=== PATIENT | female | born 1950 | race Caucasian/White ===

== ENCOUNTER 2017-06-23 21:24 | Emergency (ER) | payer MEDICARE, OTHER ==
[2017-06-23] MEDS ORDERED: Sodium Chloride 0.9% 1,000 ML IV SCH (21:45)
[2017-06-23] MEDS ORDERED: Sodium Chloride 0.9% 10 ML Syringe FLUSH PRN (21:45)
[2017-06-23 22:34] VITALS: BP 144/73
--- NOTE | 2017-06-24 16:46 | ER ---
DATE SEEN: 06/23/2017 TIME SEEN: 11 p.m. CHIEF COMPLAINT: Fever. HISTORY OF PRESENT ILLNESS: Ana is a 66-year-old female, who comes in because of fever for 5 days, first seen in the walk-in clinic, and transferred here because they found acute kidney injury in the lab work. She complains of intermittent diarrhea, some sore throat but no chest pain or cough. No cold symptoms just feels generally weak. Has been eating and drinking fine. PAST MEDICAL HISTORY: Hypertension, fluid retention, anxiety and depression. CURRENT MEDICATIONS: 1. Lisinopril. 2. Paxil. 3. Klonopin. 4. She recently quit furosemide on the . PHYSICAL EXAMINATION: GENERAL: She is obese but in no distress. VITAL SIGNS: Blood pressure initially 144/73, temperature 97.4, and oxygenation 97% on room air. EARS, NOSE, AND THROAT: Negative. HEAD: Normal size. NECK: Supple. CARDIOVASCULAR SYSTEM: Normal S1, S2. RESPIRATORY SYSTEM: Diminished breath sounds bilaterally, occasional wheezing. EXTREMITIES: Marked peripheral nonpitting edema. LABORATORY STUDIES: I reviewed lab sets from the walk-in clinic that showed creatinine of 2.9. Sodium was 129 and potassium 3.3. Troponin was negative and BNP was 12. Urine was unremarkable. I did an EKG today that was normal sinus rhythm, and chest x-ray that was unremarkable. IMPRESSION: 1. Acute febrile illness. 2. Acute kidney injury. 3. Hypertension. PLAN: I gave her 1 L of normal saline. I discontinued lisinopril. I advised her to be seen in the clinic on Monday without fail. At the minimum, we will obtain a repeat basic metabolic profile. If her symptoms get worse, we will like to see her back in the ER this weekend. I ordered for 2 sets of blood cultures, which will be set up. TIME SEEN: 11:00 p.m. /[id number] SARA/GENARO
--- NOTE | 2017-06-26 11:12 | CR ---
INDICATION: Short of breath, previous smoker for 30 years. CHEST: PA and lateral views of the chest were obtained 06/23/2017. No comparisons were available. The heart appears mildly enlarged with fairly generalized enlargement and definite LVE. The aorta is calcified in the arch area. Mild to moderate degenerative changes are noted off vertebral bodies in the mid thoracic spine. A definite active infiltrate or effusion was not identified. There does appear to be some lateral pleural thickening bilaterally, likely fibrotic in nature. IMPRESSION: No acute process. MTDD
== END 2017-06-23 23:30 | disposition home or self-care (01) ==
LOC: FB.ED 21:24
DX: R50.9 Fever, unspecified (principal); I10 Essential (primary) hypertension; F32.9 Major depressive disorder, single episode, unspecified
CPT/HCPCS: 36415; 71020; 80053; 81001; 83880; 84484; 85025; 86140; 87040; 93005; 96360; 99283; J7040

== ENCOUNTER 2018-07-01 22:49 | Emergency (ER) | payer MEDICARE, OTHER ==
[2018-07-01] MEDS ORDERED: Sodium Chloride 0.9% 1,000 ML IV ONE (23:06)
[2018-07-01] MEDS ORDERED: Pantoprazole 40 MG Vial IVPUSH ONE (23:07)
--- NOTE | 2018-07-01 23:08 | EDM.PDOC ---
ED HPI GENERAL MEDICAL PROBLEM - General Chief Complaint: Gastrointestinal Problem Stated Complaint: VOMITTING Time Seen by Provider: 07/01/18 22:50 Source of Information: Reports: Patient History Limitations: Reports: No Limitations - History of Present Illness INITIAL COMMENTS - FREE TEXT/NARRATIVE: 67-year-old to who also is an alcoholic. She has a home health provider which is her daughter. Daughter doesn't know where she keeps alcohol. The patient's and patient drink alcohol extensively and hide the etoh form her daughter. She is diabetic takes Januvia. Has been "retching and puking " all day. She drank excessively yesterday. He has extensive lymphedema and has difficulty walking with poor mobility consequently is on disability and she's had home health care 8 weeks trial. She longer has that social program now her daughter is taking care of her. She did well with physical therapy but has not done persisted to consume alcohol Smokes 40 years, one half pack per day (20 pack years). Vomiting now, while I talk to her, no hematemesis. She has generalized abdominal discomfort, patient no diarrhea no blood in her stools, no black tarry stools, no hematochezia or, back pain kidney stones. Previous surgery abdominal hysterectomy and oophorectomy 1 para 1001. Onset Date: 07/01/18 Onset Time: 11:00 Duration: Hour(s): (12) Location: Reports: Abdomen Quality: Reports: Ache Severity: Moderate Improves with: Reports: None Worsens with: Reports: Other (etoh) Associated Symptoms: Reports: Nausea/Vomiting - Related Data Allergies Allergy/AdvReac Type Severity Reaction Status Date / Time No Known Allergies Allergy Verified 07/01/18 22:59 Home Meds: Home Meds ClonazePAM [KlonoPIN] 0.5 mg PO TID PRN 06/23/17 [History] Furosemide 20 mg PO DAILY 06/23/17 [History] Lisinopril 5 mg PO DAILY 06/23/17 [History] PARoxetine [Paxil] 10 mg PO DAILY 06/23/17 [History] Spironolactone [Aldactone] 50 mg PO DAILY 07/01/18 [History] Past Medical History HEENT History: Reports: Impaired Vision Other HEENT History: glasses Cardiovascular History: Reports: Heart Failure, Hypertension Psychiatric History: Reports: Anxiety, Depression Social & Family History - Caffeine Use Caffeine Use: Reports: Coffee, Soda ED ROS GENERAL - Review of Systems Review Of Systems: See Below Constitutional: Reports: No Symptoms HEENT: Reports: No Symptoms Respiratory: Reports: No Symptoms, Shortness of Breath, Other (shortness of breath unless she sleep sitting up in a lazy boy chair) Cardiovascular: Reports: No Symptoms Endocrine: Reports: No Symptoms GI/Abdominal: Reports: Abdominal Pain, Anorexia, Decreased Appetite, Nausea, Vomiting : Reports: Incontinence, Other (Experienced incontinence as well as speaking to her) Musculoskeletal: Reports: No Symptoms Skin: Reports: No Symptoms Neurological: Reports: No Symptoms, Other (she has fallen twice since March ( her daughter has been here wither her mother and father at [facility] with her mother and father -daughter comes from [place] since March)) Psychiatric: Reports: No Symptoms Hematologic/Lymphatic: Reports: No Symptoms Immunologic: Reports: No Symptoms ED EXAM, GI/ABD - Physical Exam Exam: See Below Text/Narrative:: Obese 320 pound woman in moderate distress accompanied by her daughter with repetitive retching and vomiting of clear, nonbloody, succicus entericus Exam Limited By: No Limitations General Appearance: Alert, Moderate Distress Eyes: Bilateral: Normal Appearance Ears: Normal External Exam, Normal Canal, Hearing Grossly Normal, Normal TMs Nose: Normal Inspection Throat/Mouth: Normal Inspection, Normal Lips, Normal Teeth, Normal Gums, Normal Oropharynx, Normal Voice, No Airway Compromise Head: Atraumatic, Normocephalic Neck: Normal Inspection, Supple, Non-Tender, Full Range of Motion Respiratory/Chest: No Respiratory Distress, Lungs Clear, Normal Breath Sounds, No Accessory Muscle Use, Chest Non-Tender Cardiovascular: Normal Peripheral Pulses, Regular Rate, Rhythm, No JVD, No Murmur, No Rub GI/Abdominal Exam: Normal Bowel Sounds, Soft, Non-Tender, No Organomegaly, No Distention, No Abnormal Bruit, No Mass (Female) Exam: Deferred Rectal (Female) Exam: Deferred Back Exam: Normal Inspection Neurological: Alert, Oriented, CN II-XII Intact, Normal Cognition, Normal Gait, Other (Absent reflexes lwer extremities) Psychiatric: Normal Affect, Normal Mood Skin Exam: Warm, Dry, Intact, Other (Bilateral lower extremity extensive lymphedema with bluish discoloration to the knees to the ankles with decreased dorsalis pedis pulses, she has nonpitting lymphedema) Lymphatic: No Adenopathy EKG INTERPRETATION EKG Date: 07/01/18 Time: 23:20 Rhythm: NSR Rate (Beats/Min): 88 [place]: Normal P-Wave: Enlarged (p very slightly notched, old anteroseptal [place] suggested with porr R wave progression across the precordials) QRS: Other (see below) ST-T: Normal QT: Normal Comparison: NA - No Prior EKG Course - Vital Signs Last Recorded V/S: Last Vital Signs Temp 36.4 C 07/02/18 00:12 Pulse 93 07/02/18 01:54 Resp 20 07/02/18 01:54 BP 166/75 H 07/02/18 01:54 Pulse Ox 98 07/02/18 01:54 - Orders/Labs/Meds Orders: Active Orders 24 hr Category Date Time Status CXR [Chest 1V Frontal] [CR] Stat Exams 07/01/18 23:05 Taken DRUG SCREEN, URINE ALERE [URCHEM] Urgent Lab 07/02/18 02:23 Ordered UA W/MICROSCOPIC [URIN] Urgent Lab 07/02/18 02:23 Ordered Dextrose 5%-Lactated Ringers 1,000 ml Med 07/01/18 23:15 Active IV ASDIRECTED Sodium Chloride 0.9% [Normal Saline] 1,000 ml Med 07/02/18 01:45 Active IV ASDIRECTED EKG 12 Lead [EK] Routine Ther 07/01/18 23:05 Ordered Medication Orders Dextrose/Lactated Ringer's (Dextrose 5%-Lactated Ringers) 1,000 mls @ 999 mls/ hr IV ASDIRECTED NISSA Last Admin: 07/01/18 23:40 Dose: 999 mls/hr Sodium Chloride (Normal Saline) 1,000 mls @ 999 mls/hr IV ASDIRECTED NISSA Last Admin: 07/02/18 02:00 Dose: 999 mls/hr Labs: Laboratory Tests 07/01/18 07/01/18 07/01/18 Range/Units 23:20 23:20 23:20 WBC 14.6 H (4.5-12.0) X10-3/uL RBC 4.87 (3.23-5.20) x10(6)uL Hgb 14.0 (11.5-15.5) g/dL Hct 41.9 (30.0-51.3) % MCV 86.0 (80-96) fL MCH 28.8 (27.7-33.6) pg MCHC 33.4 (32.2-35.4) g/dL RDW 15.2 (11.5-15.5) % Plt Count 211 (125-369) X10(3)uL MPV 8.6 (7.4-10.4) fL Add Manual Diff Yes Neutrophils % (Manual) 93 H (46-82) % Lymphocytes % (Manual) 4 L (13-37) % Monocytes % (Manual) 2 L (4-12) % Basophils % (Manual) 1 (0-2) % Sodium 131 L (135-145) mmol/L Potassium 3.6 (3.5-5.3) mmol/L Chloride 91 L (100-110) mmol/L Carbon Dioxide 25 (21-32) mmol/L BUN 7 (7-18) mg/dL Creatinine 0.8 (0.55-1.02) mg/dL Est Cr Clr Drug Dosing 67.27 mL/min Estimated GFR (MDRD) > 60 (>60) BUN/Creatinine Ratio 8.8 L (9-20) Glucose 142 H (80-116) mg/dL Calcium 9.7 (8.6-10.2) mg/dL Total Bilirubin 1.4 H (0.1-1.3) mg/dL AST 86 H (5-25) IU/L ALT 27 (12-36) U/L Alkaline Phosphatase 182 H (56-112) IU/L Troponin I < 0.017 L (<0.017-0.056) ng/mL Total Protein 9.7 H (6.0-8.0) g/dL Albumin 3.7 (3.2-4.6) g/dL Globulin 6.0 g/dL Albumin/Globulin Ratio 0.6 Amylase 29 (25-115) U/L Urine Color (YELLOW) Urine Appearance (CLEAR) Urine pH (5.0-6.5) Ur Specific [place] (1.010-1.025) Urine Protein (NEGATIVE) mg/dL Urine Glucose (UA) (NEGATIVE) mg/dL Urine Ketones (NEGATIVE) mg/dL Urine Occult Blood (NEGATIVE) Urine Nitrite (NEGATIVE) Urine Bilirubin (NEGATIVE) Urine Urobilinogen (NEGATIVE) mg/dL Ur Leukocyte Esterase (NEGATIVE) Urine RBC (0) Urine WBC (0) Ur Squamous Epith Cells (NS,R,O) Urine Bacteria (NS) Urine Mucus (NS) Urine Opiates Screen (NEGATIVE) Ur Oxycodone Screen (NEGATIVE) Ur Propoxyphene Screen (NEGATIVE) Ur Barbituates Screen (NEGATIVE) Ur Tricyclics Screen (NEGATIVE) Ur Phencyclidine Scrn (NEGATIVE) Ur Amphetamine Screen (NEGATIVE) Urine MDMA Screen (NEGATIVE) U Benzodiazepines Scrn (NEGATIVE) U Cocaine Metab Screen (NEGATIVE) U Marijuana (THC) Screen (NEGATIVE) Ethyl Alcohol < 0.03 (<0.03) % 07/02/18 07/02/18 Range/Units 02:23 02:23 WBC (4.5-12.0) X10-3/uL RBC (3.23-5.20) x10(6)uL Hgb (11.5-15.5) g/dL Hct (30.0-51.3) % MCV (80-96) fL MCH (27.7-33.6) pg MCHC (32.2-35.4) g/dL RDW (11.5-15.5) % Plt Count (125-369) X10(3)uL MPV (7.4-10.4) fL Add Manual Diff Neutrophils % (Manual) (46-82) % Lymphocytes % (Manual) (13-37) % Monocytes % (Manual) (4-12) % Basophils % (Manual) (0-2) % Sodium (135-145) mmol/L Potassium (3.5-5.3) mmol/L Chloride (100-110) mmol/L Carbon Dioxide (21-32) mmol/L BUN (7-18) mg/dL Creatinine (0.55-1.02) mg/dL Est Cr Clr Drug Dosing mL/min Estimated GFR (MDRD) (>60) BUN/Creatinine Ratio (9-20) Glucose (80-116) mg/dL Calcium (8.6-10.2) mg/dL Total Bilirubin (0.1-1.3) mg/dL AST (5-25) IU/L ALT (12-36) U/L Alkaline Phosphatase (56-112) IU/L Troponin I (<0.017-0.056) ng/mL Total Protein (6.0-8.0) g/dL Albumin (3.2-4.6) g/dL Globulin g/dL Albumin/Globulin Ratio Amylase (25-115) U/L Urine Color Yellow (YELLOW) Urine Appearance Slightly cloudy (CLEAR) Urine pH 5.0 (5.0-6.5) Ur Specific [place] 1.025 (1.010-1.025) Urine Protein 30 H (NEGATIVE) mg/dL Urine Glucose (UA) 50 H (NEGATIVE) mg/dL Urine Ketones 50 H (NEGATIVE) mg/dL Urine Occult Blood Moderate H (NEGATIVE) Urine Nitrite Negative (NEGATIVE) Urine Bilirubin Small H (NEGATIVE) Urine Urobilinogen 4 H (NEGATIVE) mg/dL Ur Leukocyte Esterase Negative (NEGATIVE) Urine RBC 5-10 (0) Urine WBC 0-5 (0) Ur Squamous Epith Cells Moderate H (NS,R,O) Urine Bacteria Moderate H (NS) Urine Mucus Moderate H (NS) Urine Opiates Screen Negative (NEGATIVE) Ur Oxycodone Screen Negative (NEGATIVE) Ur Propoxyphene Screen Negative (NEGATIVE) Ur Barbituates Screen Negative (NEGATIVE) Ur Tricyclics Screen Negative (NEGATIVE) Ur Phencyclidine Scrn Negative (NEGATIVE) Ur Amphetamine Screen Negative (NEGATIVE) Urine MDMA Screen Negative (NEGATIVE) U Benzodiazepines Scrn Negative (NEGATIVE) U Cocaine Metab Screen Negative (NEGATIVE) U Marijuana (THC) Screen Negative (NEGATIVE) Ethyl Alcohol (<0.03) % Meds: Medications Generic Name Dose Route Start Last Admin Trade Name Freq PRN Reason Stop Dose Admin Dextrose/Lactated Ringer's 1,000 mls @ 999 mls/hr 07/01/18 23:15 07/01/18 23: 40 Dextrose 5%-Lactated Ringers IV 999 mls/hr ASDIRECTED NISSA Administration Sodium Chloride 1,000 mls @ 999 mls/hr 07/02/18 01:45 07/02/18 02:00 Normal Saline IV 999 mls/hr ASDIRECTED NISSA Administration Discontinued Medications Generic Name Dose Route Start Last Admin Trade Name Freq PRN Reason Stop Dose Admin Diazepam 5 mg 07/02/18 03:16 Valium. PO 07/02/18 03:17 ONETIME ONE Sodium Chloride 1,000 mls @ 999 mls/hr 07/01/18 23:06 07/02/18 00:50 Normal Saline IV 07/02/18 00:06 999 mls/hr .BOLUS ONE Administration Pantoprazole Sodium 80 mg 07/01/18 23:07 07/01/18 23:42 Protonix Iv IVPUSH 07/01/18 23:08 80 mg .BOLUS ONE Administration - Re-Assessments/Exams Free Text/Narrative Re-Assessment/Exam: 07/01/18 23:13 Patient received 2000 mL normal saline, 1000 mL D5 lactated Ringer's, Protonix 80 mg IV, Departure - Departure Time of Disposition: 03:30 (pt has been rehydrate with 3 liter of fluid and took time to arrange detox . She has finally baeen accepted at [facility] by [facility]) Disposition: DC/Tfer to Other Clinical Impression: ETOHism, Myocardial infarct, old, Morbid obesity with BMI of 50.0-59.9, adult Diabetes mellitus Qualifiers: Diabetes mellitus type: type 2 Diabetes mellitus rat exterminator insulin use: without snf use Diabetes mellitus complication status: with hyperglycemia Qualified Code(s): E11.65 - Type 2 diabetes mellitus with hyperglycemia Alcohol withdrawal Qualifiers: Complication of substance-induced condition: uncomplicated Qualified Code(s): F10.230 - Alcohol dependence with withdrawal, uncomplicated - Discharge Information *PRESCRIPTION DRUG MONITORING PROGRAM REVIEWED*: Not Applicable *COPY OF PRESCRIPTION DRUG MONITORING REPORT IN PATIENT KLAUDIA: Not Applicable Referrals: Suzan Mei PA [Primary Care Provider] - Forms: ED Department Discharge Additional Instructions: pT IS TRANFERRED TO [facility] FOR TREATMENT, AND HAS RECEIVED 5 MG OF VALIUM PO BEFORE TRANSFER. IF HER STATUS CHANGES AND SHE HAS MORE SYMPATHOMIMETIC SYMPTOMS 5 MG VALIUM CAN BE GIVEN EVERY 1-2 HOURS NEEDED BY [employer] ON TRANSPORT - My Orders Last 24 Hours: My Active Orders 07/01/18 23:05 CXR [Chest 1V Frontal] [CR] Stat EKG 12 Lead [EK] Routine 07/01/18 23:15 Dextrose 5%-Lactated Ringers 1,000 ml IV ASDIRECTED 07/02/18 01:45 Sodium Chloride 0.9% [Normal Saline] 1,000 ml IV ASDIRECTED 07/02/18 02:23 DRUG SCREEN, URINE ALERE [URCHEM] Urgent UA W/MICROSCOPIC [URIN] Urgent - Assessment/Plan Last 24 Hours: My Active Orders 07/01/18 23:05 CXR [Chest 1V Frontal] [CR] Stat EKG 12 Lead [EK] Routine 07/01/18 23:15 Dextrose 5%-Lactated Ringers 1,000 ml IV ASDIRECTED 07/02/18 01:45 Sodium Chloride 0.9% [Normal Saline] 1,000 ml IV ASDIRECTED 07/02/18 02:23 DRUG SCREEN, URINE ALERE [URCHEM] Urgent UA W/MICROSCOPIC [URIN] Urgent
[2018-07-01] MEDS ORDERED: Dextrose 5%-Lactated Ringers 1,000 ML IV SCH (23:15)
[2018-07-02] MEDS ORDERED: Sodium Chloride 0.9% 1,000 ML IV SCH (01:45)
[2018-07-02] MEDS ORDERED: Diazepam 5 MG Tab PO ONE (03:16)
[2018-07-02 04:08] VITALS: BP 165/71
--- NOTE | 2018-07-04 10:45 | CR ---
INDICATION: Vomiting. CHEST: An AP upright portable view of the chest, 07/01/2018, was compared with 06/23/2017 and revealed the heart to appear somewhat prominent, but it is made more prominent by the AP positioning and relatively poor inspiration. It may be normal in size. A true PA view of the chest with full inspiration may be helpful for further evaluation. The aorta is calcified in the arch area and minimally tortuous. A definite active infiltrate or effusion was not identified. Evidence of exogenous obesity is noted. A linear density at the right lung base likely represents either fibrosis or linear atelectasis and may be partly on the basis of relatively poor inspiration. IMPRESSION: 1. No acute process. 2. Probable ASHD - PA and lateral views of the chest with full inspiration recommended for further evaluation of the heart size. 3. Exogenous obesity. MTDD
== END 2018-07-02 04:00 | disposition other institution (70) ==
LOC: FB.ED 22:49
DX: F10.230 Alcohol dependence with withdrawal, uncomplicated (principal); E11.65 Type 2 diabetes mellitus with hyperglycemia; I25.2 Old myocardial infarction; E66.01 Morbid (severe) obesity due to excess calories; Z68.43 Body mass index [BMI] 50.0-59.9, adult; I11.0 Hypertensive heart disease with heart failure; I50.9 Heart failure, unspecified; Z79.899 Other long term (current) drug therapy; F32.9 Major depressive disorder, single episode, unspecified
CPT/HCPCS: 36415; 71045; 80053; 80305; 81001; 82150; 84484; 85025; 93005; 96361; 96374; 99285; A9270; C9113; G0480; J7030; J7042

== ENCOUNTER 2019-03-07 11:28 | Inpatient (IN) | payer MEDICARE, OTHER ==
[2019-03-07] MEDS ORDERED: Diphtheria,Pertussis(Acell),Tetanus Vaccine 0.5 ML SDV IM ONE (11:50)
[2019-03-07] MEDS ORDERED: Triamcinolone Acetonide 0.1% Crm 15 GM Tube TOP PRN (13:19)
--- NOTE | 2019-03-07 20:38 | PCM.HP ---
H&P History of Present Illness - General Date of Service: 03/07/19 Admit Problem/Dx: Admission Diagnosis/Problem Admission Diagnosis/Problem Weakness Source of Information: Old Records History Limitations: Reports: No Limitations - History of Present Illness Initial Comments - Free Text/Narative: 68 yo admitted for Swing Bed due to debility. She was at [facility] for a month due to syncope and collapse and closed fracture of the right humerus. This was treated non surgically. She has a h/o ETOISM,DM and HTN. She complains of anxiety today - Related Data Allergies/Adverse Reactions: Allergies Allergy/AdvReac Type Severity Reaction Status Date / Time No Known Allergies Allergy Verified 03/07/19 11:46 Home Medications: Home Meds ClonazePAM [KlonoPIN] 0.5 mg PO BID PRN 06/23/17 [History] Acetaminophen [Tylenol] 650 mg PO Q4H PRN 03/07/19 [History] Aspirin [Halfprin] 81 mg PO DAILY 03/07/19 [History] Folic Acid 1 mg PO DAILY 03/07/19 [History] Olopatadine [Pataday 0.2% Ophth Soln] 1 drop EYEBOTH DAILY 03/07/19 [History] Omeprazole 20 mg PO BEDTIME 03/07/19 [History] PARoxetine [Paxil] 40 mg PO DAILY 03/07/19 [History] SitaGLIPtin [Januvia] 50 mg PO DAILY 03/07/19 [History] Triamcinolone Acetonide [Triamcinolone Acetonide 0.1% Crm] 1 applic TOP BID PRN 03/07/19 [History] Past Medical History HEENT History: Reports: Impaired Vision Other HEENT History: glasses Cardiovascular History: Reports: Heart Failure, 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 Endocrine/Metabolic History: Reports: Diabetes, Type II Dermatologic History: Reports: Cellulitis Other Dermatologic History: cellulitis in 2015 - Infectious Disease History Infectious Disease History: Reports: Chicken Pox, Measles - Past Surgical History HEENT Surgical History: Reports: Cataract Surgery Female Surgical History: Reports: Hysterectomy Social & Family History - Family History Family Medical History: Noncontributory - Tobacco Use Smoking Status *Q: Current Every Day Smoker Years of Tobacco use: 30 Packs/Tins Daily: 0.5 Second Hand Smoke Exposure: Yes - Caffeine Use Caffeine Use: Reports: Coffee, Soda, Tea - Alcohol Use Days Per Week of Alcohol Use: 5 Number of Drinks Per Day: 6 Total Drinks Per Week: 30 Date of Last Drink: 03/03/19 Time of Last Drink: 10:00 - Recreational Drug Use Recreational Drug Use: No H&P Review of Systems - Review of Systems: Review Of Systems: ROS reveals no pertinent complaints other than HPI. Exam - Exam Exam: See Below - Vital Signs Vital Signs: Last Vital Signs Temp 98.2 F 03/07/19 11:45 Pulse 85 03/07/19 11:45 Resp 18 03/07/19 11:45 BP 132/78 03/07/19 11:45 Pulse Ox 96 03/07/19 12:00 Weight: 124.738 kg - Exam General: Alert, Oriented, 4 HEENT: PERRLA, Hearing Intact, Mucosa Moist & [place], Nares Patent, Normal Nasal Septum, Posterior Pharynx Clear, Conjunctiva Clear, EOMI, EACs Clear, TMs Clear Neck: Supple, Trachea Midline, 2 Lungs: Clear to Auscultation, Normal Respiratory Effort Cardiovascular: Regular Rate, Regular Rhythm GI/Abdominal Exam: Normal Bowel Sounds, Soft, Non-Tender, No Organomegaly, No Distention, No Abnormal Bruit, No Mass, Pelvis Stable (Female) Exam: Deferred Rectal (Female) Exam: Deferred Back Exam: Normal Inspection, Full Range of Motion, NT Extremities: Normal Range of Motion, Non-Tender, No Pedal Edema, Normal Capillary Refill, Other (sling right arm) Skin: Warm, Dry, Intact Neurological: Cranial Nerves Intact, Reflexes Equal Bilateral Neuro Extensive - Mental Status: Alert, Oriented x3, Normal Mood/Affect, Normal Cognition Neuro Extensive - Motor, Sensory, Reflexes: CN II-XII Intact, Normal Gait, Normal Reflexes Psychiatric: Alert, Normal Affect, Normal Mood - Patient Data Lab Results Last 24 hrs: Laboratory Results - last 24 hr 03/07/19 Range/Units 18:02 POC Glucose 100 (80-116) mg/dL - Problem List (1) Humerus fracture SNOMED Code(s): 94564860 ICD Code: S42.309A - UNSP FRACTURE OF SHAFT OF HUMERUS, UNSP ARM, INIT Status: Acute Current Visit: Yes Qualifiers: Encounter type: subsequent encounter Fracture type: closed Laterality: right Fracture healing: with routine healing (2) Syncope and collapse SNOMED Code(s): 339616413 ICD Code: R55 - SYNCOPE AND COLLAPSE Status: Chronic Current Visit: Yes (3) Diabetes mellitus SNOMED Code(s): 72281227 ICD Code: E11.9 - TYPE 2 DIABETES MELLITUS WITHOUT COMPLICATIONS Status: Chronic Current Visit: No Qualifiers: Diabetes mellitus type: type 2 Proliferative retinopathy type: stable (4) ETOHism SNOMED Code(s): 8846295 ICD Code: F10.20 - ALCOHOL DEPENDENCE, UNCOMPLICATED Status: Acute Current Visit: No (5) Morbid obesity with BMI of 50.0-59.9, adult SNOMED Code(s): 846906679, 55573431560646 ICD Code: E66.01 - MORBID (SEVERE) OBESITY DUE TO EXCESS CALORIES; Z68.43 - BODY MASS INDEX (BMI) 50-59.9, ADULT Status: Acute Current Visit: No (6) Debility SNOMED Code(s): 12389553 ICD Code: R53.81 - OTHER MALAISE Status: Acute Current Visit: Yes Problem List Initiated/Reviewed/Updated: Yes Orders Last 24hrs: Active Orders 24 hr Category Date Time Status Patient Status [ADT] Routine ADT 03/07/19 13:17 Active Blood Glucose Check, Bedside [RC] 07,11,17 Care 03/07/19 17:00 Active Communication Order [RC] ASDIRECTED Care 03/07/19 14:11 Active Dietary Supplements [RC] TIDMEALS Care 03/07/19 13:17 Active Height and Weight [RC] .THUR@0600 Care 03/07/19 13:17 Active Oxygen Therapy [RC] PRN Care 03/07/19 13:17 Active Up With Assistance [RC] ASDIRECTED Care 03/07/19 13:17 Active VTE/DVT Education [RC] Per Unit Routine Care 03/07/19 13:17 Active Vaccines to be Administered [RC] PER UNIT ROUTINE Care 03/07/19 11:50 Active Vital Signs [RC] 08 Care 03/07/19 13:17 Active OT Evaluation and Treatment [CONS] Routine Cons 03/07/19 13:17 Active PT Evaluation and Treatment [CONS] Routine Cons 03/07/19 13:17 Active Consistent Carbohydrate Diet [DIET] Diet 03/07/19 Lunch Active Acetaminophen [Tylenol] Med 03/07/19 13:19 Active 650 mg PO Q4H PRN Aspirin [Halfprin] Med 03/08/19 09:00 Active 81 mg PO DAILY ClonazePAM [KlonoPIN] Med 03/07/19 13:19 Active 0.5 mg PO BID PRN Folic Acid Med 03/08/19 09:00 Active 1 mg PO DAILY Ketotifen [Ketotifen 0.025% Ophth Soln] Med 03/07/19 21:00 Active 0 ml EYEBOTH BID PARoxetine [Paxil] Med 03/08/19 09:00 Active 40 mg PO DAILY Pantoprazole [ProTONIX] Med 03/07/19 21:00 Active 40 mg PO BEDTIME SitaGLIPtin [Januvia] Med 03/08/19 09:00 Active 50 mg PO DAILY Triamcinolone Acetonide [Triamcinolone Acetonide 0.1% Med 03/07/19 13:19 Active Crm] 0 gm TOP BID PRN Resuscitation Status Routine Resus Stat 03/07/19 13:17 Ordered Medication Orders Acetaminophen (Tylenol) 650 mg PO Q4H PRN PRN Reason: MILD PAIN Aspirin (Halfprin) 81 mg PO DAILY NISSA Clonazepam (Klonopin) 0.5 mg PO BID PRN PRN Reason: Anxiety Folic Acid (Folic Acid) 1 mg PO DAILY NISSA Ketotifen Fumarate (Ketotifen 0.025% Ophth Soln) 0 ml EYEBOTH BID NISSA Pantoprazole Sodium (Protonix) 40 mg PO BEDTIME NISSA Paroxetine HCl (Paxil) 40 mg PO DAILY NISSA Sitagliptin Phosphate (Januvia) 50 mg PO DAILY NISSA Triamcinolone Acetonide (Triamcinolone Acetonide 0.1% Crm) 0 gm TOP BID PRN PRN Reason: ITCHY RASH Assessment/Plan Comment:: Admit to Swing Bed. PT and OT. Resume meds.
[2019-03-07] MEDS: ClonazePAM 0.5 MG Tab PO PRN (21:04)
[2019-03-07] MEDS: Ketotifen 0.025% Ophth Soln 5 ML Bottle EYEBOTH SCH (21:05)
[2019-03-07] MEDS: Pantoprazole 40 MG Tab.CR PO SCH (21:05)
[2019-03-08] MEDS: Aspirin 81 MG Tab.EC PO SCH (08:53)
[2019-03-08] MEDS: Folic Acid 1 MG Tab PO SCH (08:53)
[2019-03-08] MEDS: PARoxetine 20 MG Tab PO SCH (08:54)
[2019-03-08] MEDS: Ketotifen 0.025% Ophth Soln 5 ML Bottle EYEBOTH SCH ×2 (08:54→19:59)
[2019-03-08] MEDS: Pantoprazole 40 MG Tab.CR PO SCH (19:59)
[2019-03-08] MEDS: ClonazePAM 0.5 MG Tab PO PRN (20:05)
[2019-03-09] MEDS: Folic Acid 1 MG Tab PO SCH (08:46)
[2019-03-09] MEDS: Aspirin 81 MG Tab.EC PO SCH (08:46)
[2019-03-09] MEDS: Ketotifen 0.025% Ophth Soln 5 ML Bottle EYEBOTH SCH ×2 (08:46→21:30)
[2019-03-09] MEDS: PARoxetine 20 MG Tab PO SCH (08:47)
[2019-03-09] MEDS: ClonazePAM 0.5 MG Tab PO PRN ×2 (08:51→21:32)
[2019-03-09] MEDS: Acetaminophen 325 MG Tab PO PRN ×3 (08:51→21:32)
[2019-03-09] MEDS: Pantoprazole 40 MG Tab.CR PO SCH (21:31)
[2019-03-10] MEDS: Aspirin 81 MG Tab.EC PO SCH (10:09)
[2019-03-10] MEDS: Folic Acid 1 MG Tab PO SCH (10:09)
[2019-03-10] MEDS: Ketotifen 0.025% Ophth Soln 5 ML Bottle EYEBOTH SCH ×2 (10:10→20:32)
[2019-03-10] MEDS: PARoxetine 20 MG Tab PO SCH (10:10)
--- NOTE | 2019-03-10 11:02 | PCM.PN ---
- General Info Date of Service: 03/10/19 Admission Dx/Problem (Free Text): Patient states she's doing well. She saw some right shoulder pain is improving. She denies chest pain or shortness of breath - Patient Data Vitals - Most Recent: Last Vital Signs Temp 99.3 F 03/10/19 08:00 Pulse 115 H 03/10/19 08:00 Resp 20 03/10/19 08:00 BP 116/74 03/10/19 08:00 Pulse Ox 97 03/10/19 08:00 Weight - Most Recent: 275 lb Lab Results Last 24 Hours: Laboratory Results - last 24 hr 03/09/19 03/10/19 Range/Units 17:31 06:27 POC Glucose 112 105 (80-116) mg/dL Med Orders - Current: Current Medications Acetaminophen (Tylenol) 650 mg PO Q4H PRN PRN Reason: MILD PAIN Last Admin: 03/09/19 21:32 Dose: 650 mg Aspirin (Halfprin) 81 mg PO DAILY REPLACED BY [facility] Last Admin: 03/10/19 10:09 Dose: 81 mg Clonazepam (Klonopin) 0.5 mg PO BID PRN PRN Reason: Anxiety Last Admin: 03/09/19 21:32 Dose: 0.5 mg Folic Acid (Folic Acid) 1 mg PO DAILY REPLACED BY [facility] Last Admin: 03/10/19 10:09 Dose: 1 mg Ketotifen Fumarate (Ketotifen 0.025% Ophth Soln) 0 ml EYEBOTH BID REPLACED BY [facility] Last Admin: 03/10/19 10:10 Dose: 1 drop Pantoprazole Sodium (Protonix) 40 mg PO BEDTIME REPLACED BY [facility] Last Admin: 03/09/19 21:31 Dose: 40 mg Paroxetine HCl (Paxil) 40 mg PO DAILY REPLACED BY [facility] Last Admin: 03/10/19 10:10 Dose: 40 mg Sitagliptin Phosphate (Januvia) 50 mg PO DAILY REPLACED BY [facility] Last Admin: 03/10/19 10:09 Dose: 50 mg Triamcinolone Acetonide (Triamcinolone Acetonide 0.1% Crm) 0 gm TOP BID PRN PRN Reason: ITCHY RASH Discontinued Medications Diphtheria/Tetanus/Acell Pertussis (Adacel) 0.5 ml IM .ONCE ONE Stop: 03/07/19 11:51 - Exam General: Alert, Oriented, Cooperative Extremities: Other (Right arm in a sling. Hand normal with normal range of motion and pulses intact. CMS intact) - Problem List & Annotations (1) Debility SNOMED Code(s): 58722793 Code(s): R53.81 - OTHER MALAISE Status: Acute Current Visit: Yes (2) Humerus fracture SNOMED Code(s): 47849645 Code(s): S42.309A - UNSP FRACTURE OF SHAFT OF HUMERUS, UNSP ARM, INIT Status: Acute Current Visit: Yes Qualifiers: Encounter type: subsequent encounter Fracture type: closed Laterality: right Fracture healing: with routine healing - Problem List Review Problem List Initiated/Reviewed/Updated: Yes - Plan Plan:: Continue current care at PT/OT and pain control.
[2019-03-10] MEDS: Pantoprazole 40 MG Tab.CR PO SCH (20:33)
[2019-03-10] MEDS: ClonazePAM 0.5 MG Tab PO PRN (20:34)
[2019-03-10] MEDS: Acetaminophen 325 MG Tab PO PRN (20:34)
[2019-03-11] MEDS: PARoxetine 20 MG Tab PO SCH (09:37)
[2019-03-11] MEDS: Folic Acid 1 MG Tab PO SCH (09:37)
[2019-03-11] MEDS: Aspirin 81 MG Tab.EC PO SCH (09:37)
[2019-03-11] MEDS: Ketotifen 0.025% Ophth Soln 5 ML Bottle EYEBOTH SCH ×2 (09:38→20:46)
[2019-03-11] MEDS: Acetaminophen 325 MG Tab PO PRN ×2 (17:30→21:17)
[2019-03-11] MEDS: Pantoprazole 40 MG Tab.CR PO SCH (20:46)
[2019-03-11] MEDS: ClonazePAM 0.5 MG Tab PO PRN (21:17)
[2019-03-12] MEDS: Acetaminophen 325 MG Tab PO PRN (06:30)
[2019-03-12] MEDS: traMADol 50 MG Tab PO PRN ×4 (08:48→22:04)
[2019-03-12] MEDS: Aspirin 81 MG Tab.EC PO SCH (08:49)
[2019-03-12] MEDS: Folic Acid 1 MG Tab PO SCH (08:49)
[2019-03-12] MEDS: Ketotifen 0.025% Ophth Soln 5 ML Bottle EYEBOTH SCH ×2 (08:50→20:36)
[2019-03-12] MEDS: PARoxetine 20 MG Tab PO SCH (08:50)
[2019-03-12] MEDS: Celecoxib 200 MG Cap PO SCH ×2 (08:54→20:35)
[2019-03-12] MEDS: Pantoprazole 40 MG Tab.CR PO SCH (20:35)
[2019-03-12] MEDS: ClonazePAM 0.5 MG Tab PO PRN (22:04)
[2019-03-13] MEDS: traMADol 50 MG Tab PO PRN ×5 (02:48→20:51)
[2019-03-13] MEDS: PARoxetine 20 MG Tab PO SCH ×2 (07:50→11:33)
[2019-03-13] MEDS: Ketotifen 0.025% Ophth Soln 5 ML Bottle EYEBOTH SCH ×3 (07:51→20:51)
[2019-03-13] MEDS: Folic Acid 1 MG Tab PO SCH ×2 (07:51→11:32)
[2019-03-13] MEDS: Aspirin 81 MG Tab.EC PO SCH ×2 (07:51→11:32)
[2019-03-13] MEDS: Celecoxib 200 MG Cap PO SCH ×3 (07:51→20:51)
[2019-03-13] MEDS: ClonazePAM 0.5 MG Tab PO PRN (20:51)
[2019-03-13] MEDS: Pantoprazole 40 MG Tab.CR PO SCH (20:51)
[2019-03-14] MEDS: traMADol 50 MG Tab PO PRN ×5 (01:51→20:18)
[2019-03-14] MEDS: Celecoxib 200 MG Cap PO SCH ×2 (07:59→20:17)
[2019-03-14] MEDS: Folic Acid 1 MG Tab PO SCH (07:59)
[2019-03-14] MEDS: PARoxetine 20 MG Tab PO SCH (08:00)
[2019-03-14] MEDS: Ketotifen 0.025% Ophth Soln 5 ML Bottle EYEBOTH SCH ×2 (08:00→20:17)
[2019-03-14] MEDS: Aspirin 81 MG Tab.EC PO SCH (08:00)
[2019-03-14] MEDS: Pantoprazole 40 MG Tab.CR PO SCH (20:17)
[2019-03-15] MEDS: traMADol 50 MG Tab PO PRN ×2 (00:23→04:57)
[2019-03-15] MEDS: Acetaminophen 325 MG Tab PO PRN ×2 (00:24→10:58)
[2019-03-15] MEDS: ClonazePAM 0.5 MG Tab PO PRN (00:24)
[2019-03-15] MEDS: Celecoxib 200 MG Cap PO SCH ×2 (08:42→20:40)
[2019-03-15] MEDS: Folic Acid 1 MG Tab PO SCH (08:42)
[2019-03-15] MEDS: Aspirin 81 MG Tab.EC PO SCH (08:43)
[2019-03-15] MEDS: PARoxetine 20 MG Tab PO SCH (08:43)
[2019-03-15] MEDS: Ketotifen 0.025% Ophth Soln 5 ML Bottle EYEBOTH SCH ×2 (08:43→20:41)
[2019-03-15] MEDS: Pantoprazole 40 MG Tab.CR PO SCH (20:41)
[2019-03-16 06:07] VITALS: BP 146/90
[2019-03-16] MEDS: Folic Acid 1 MG Tab PO SCH (09:25)
[2019-03-16] MEDS: Celecoxib 200 MG Cap PO SCH (09:25)
[2019-03-16] MEDS: Ketotifen 0.025% Ophth Soln 5 ML Bottle EYEBOTH SCH (09:26)
[2019-03-16] MEDS: PARoxetine 20 MG Tab PO SCH (09:26)
[2019-03-16] MEDS: Aspirin 81 MG Tab.EC PO SCH (09:26)
[2019-03-16] MEDS: Acetaminophen 325 MG Tab PO PRN (09:30)
--- NOTE | 2019-03-16 11:40 | DISCH ---
DISCHARGE DATE: 03/16/2019 PRIMARY FINAL DIAGNOSIS: Acute humerus fracture, right shoulder. OTHER DIAGNOSES: 1. Gastroesophageal reflux disease. 2. Depression. 3. Type 2 diabetes. 4. Dermatitis. 5. Anxiety. OPERATIONS: None. COMPLICATIONS: None. SUMMARY: Ana is a 68-year-old woman with the above medical problems, who fell and fractured her proximal right humerus. She was admitted from the emergency room. Phone orthopedic consultation suggested conservative nonoperative treatment. She was placed in a shoulder immobilizer and admitted for pain control and function. Her rehab course has been satisfactorily. She is doing hand exercises, but it remains in a shoulder immobilizer. Pain control was satisfactory and laboratory showed good control of her diabetes. By 03/16/2019, she was anxious for discharge. She is sent home in good condition to continue with shoulder immobilizer until next seen by Orthopedics. MEDICATIONS ON DISCHARGE: 1. Celebrex 200 mg b.i.d. p.r.n. pain. 2. Triamcinolone acetonide 0.1% cream b.i.d. p.r.n. rash. 3. Sitagliptin 50 mg daily. 4. Paroxetine 40 mg daily. 5. Omeprazole 20 mg at bedtime. 6. Ketotifen eye drops b.i.d. 7. Pataday eye drops b.i.d. 8. Folic acid 1 mg daily. 9. Clonazepam 0.5 mg b.i.d. 10.Aspirin 81 mg daily. 11.Tylenol p.r.n. She is to have follow up with Orthopedics as discussed and follow up with her regular doctor on a p.r.n. basis. /[id number] SATYA/GENARO
== END 2019-03-16 11:05 | disposition home or self-care (01) | DRG 948 ==
LOC: UNDOADMIN 11:28 → FB.MS 11:28
PROVIDERS: ADMIT Family Medicine; ATTEND Family Medicine
DX: R53.81 Other malaise (principal); Z68.43 Body mass index [BMI] 50.0-59.9, adult; S42.309D Unspecified fracture of shaft of humerus, unspecified arm, subsequent encounter for fracture with routine healing; E11.3599 Type 2 diabetes mellitus with proliferative diabetic retinopathy without macular edema, unspecified eye; F10.20 Alcohol dependence, uncomplicated; F17.210 Nicotine dependence, cigarettes, uncomplicated; I11.0 Hypertensive heart disease with heart failure; I50.9 Heart failure, unspecified; E66.01 Morbid (severe) obesity due to excess calories; R55 Syncope and collapse; K21.9 Gastro-esophageal reflux disease without esophagitis; F32.9 Major depressive disorder, single episode, unspecified; F41.9 Anxiety disorder, unspecified; L30.9 Dermatitis, unspecified; Z79.82 Long term (current) use of aspirin; H54.7 Unspecified visual loss
CPT/HCPCS: 82962; 97110-GO; 97110-GP; 97116-GP; 97161-GP; 97165-GO; 97530-GO; 97530-GP; 97535-GO; 97760-GO; A9270-GY

== ENCOUNTER 2020-01-06 15:42 | Inpatient (IN) | payer MEDICARE, OTHER ==
[2020-01-06] MEDS ORDERED: Lactulose Soln 10 GM/15 ML 30 ML UD Cup PO ONE (16:31)
[2020-01-06] MEDS ORDERED: Iopamidol 755 Mg/ML 100 ML Bottle IV ONE (17:39)
[2020-01-06] MEDS ORDERED: Spironolactone 50 MG Tab PO ONE (18:33)
[2020-01-06] MEDS ORDERED: Sodium Chloride 0.9% 1,000 ML IV SCH ×2 (18:45→20:45)
--- NOTE | 2020-01-06 19:40 | EDM.PDOC ---
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 Pt and were not aware pt was jaundice no generalized pruritus , complaining of weakness , tiredness no fever or chills noted no diarrhea pt did seem more sluggish in her speech pt complaining she has been having increased leg swelling has history of diabetes , not on medication uses a lot of rubbing alcohol on her skin Onset: Today Onset Date: 01/06/20 Location: Reports: Face Quality: Reports: Ache Severity: Moderate Associated Symptoms: Reports: Fever/Chills, Malaise, Nausea/Vomiting, Weakness - Related Data Allergies Allergy/AdvReac Type Severity Reaction Status Date / Time No Known Allergies Allergy Verified 03/07/19 11:46 Home Meds: Home Meds ClonazePAM [KlonoPIN] 0.5 mg PO BID PRN 06/23/17 [History] Acetaminophen [Tylenol] 650 mg PO Q4H PRN 03/07/19 [History] Aspirin [Halfprin] 81 mg PO DAILY 03/07/19 [History] Folic Acid 1 mg PO DAILY 03/07/19 [History] Olopatadine [Pataday 0.2% Ophth Soln] 1 drop EYEBOTH DAILY 03/07/19 [History] Omeprazole 20 mg PO BEDTIME 03/07/19 [History] PARoxetine [Paxil] 40 mg PO DAILY 03/07/19 [History] Triamcinolone Acetonide [Triamcinolone Acetonide 0.1% Crm] 1 applic TOP BID PRN 03/07/19 [History] Past Medical History HEENT History: Reports: Impaired Vision Other HEENT History: glasses Cardiovascular History: Reports: Heart Failure, Hypertension Respiratory History: Reports: None Gastrointestinal History: Reports: None Genitourinary History: Reports: None CUSTOMER RESPONSE REPRESENTATIVE History: Reports: Other CUSTOMER RESPONSE REPRESENTATIVE History: Musculoskeletal History: Reports: Other (See Below) Other Musculoskeletal History: has lymphedema Psychiatric History: Reports: Anxiety, Depression Other Psychiatric History: takes Paroxetine and clonazepam. Endocrine/Metabolic History: Reports: Diabetes, Type II Hematologic History: Reports: Anticoagulation Therapy, Folic Acid Immunologic History: Reports: None Oncologic (Cancer) History: Reports: None Dermatologic History: Reports: Cellulitis Other Dermatologic History: cellulitis in 2015 - Infectious Disease History Infectious Disease History: Reports: Chicken Pox, Measles - Past Surgical History Head Surgeries/Procedures: Reports: None HEENT Surgical History: Reports: Cataract Surgery Cardiovascular Surgical History: Reports: None GI Surgical History: Reports: None Female Surgical History: Reports: Hysterectomy Endocrine Surgical History: Reports: None Neurological Surgical History: Reports: None Oncologic Surgical History: Reports: None Social & Family History - Family History Family Medical History: Noncontributory - Tobacco Use Smoking Status *Q: Current Every Day Smoker Years of Tobacco use: 30 Packs/Tins Daily: 0.2 Used Tobacco, but Quit: No - Caffeine Use Caffeine Use: Reports: None - Alcohol Use Days Per Week of Alcohol Use: 3 Number of Drinks Per Day: 3 Total Drinks Per Week: 9 - Recreational Drug Use Recreational Drug Use: No ED ROS GENERAL - Review of Systems Review Of Systems: See Below Constitutional: Reports: Malaise, Weakness, Fatigue, Decreased Appetite, Weight Gain HEENT: Reports: No Symptoms Respiratory: Reports: No Symptoms Cardiovascular: Reports: No Symptoms Endocrine: Reports: No Symptoms GI/Abdominal: Reports: Nausea. Denies: Diarrhea, Decreased Appetite Musculoskeletal: Reports: No Symptoms Skin: Reports: Jaundice. Denies: Rash Neurological: Reports: Dizziness, Trouble Speaking Psychiatric: Reports: No Symptoms Hematologic/Lymphatic: Reports: No Symptoms ED EXAM, GENERAL - Physical Exam Exam: See Below Exam Limited By: No Limitations General Appearance: Alert, Lethargic, Obese Eye Exam: Bilateral Eye: EOMI, Other (Jumdice) Ears: Hearing Grossly Normal Nose: Normal Inspection Throat/Mouth: Normal Oropharynx Head: Atraumatic, Normocephalic Neck: Supple, Non-Tender, Full Range of Motion Respiratory/Chest: Lungs Clear, Normal Breath Sounds Cardiovascular: Normal Peripheral Pulses, Regular Rate, Rhythm GI/Abdominal: Soft, Non-Tender, Distended. No: Guarding, Rigid, Tender Extremities: Normal Inspection, Normal Range of Motion Neurological: Alert, Oriented, CN II-XII Intact Psychiatric: Normal Affect Skin Exam: Warm Course - Vital Signs Last Recorded V/S: Last Vital Signs Temp 36.3 C 01/07/20 08:00 Pulse 100 01/07/20 08:00 Resp 20 01/07/20 08:00 BP 111/55 L 01/07/20 08:00 Pulse Ox 97 01/07/20 08:00 - Orders/Labs/Meds Labs: Laboratory Tests 01/06/20 01/06/20 01/06/20 Range/Units 17:05 17:05 17:05 WBC 11.4 (4.5-12.0) X10-3/uL RBC 3.21 L (3.23-5.20) x10(6)uL Hgb 10.8 L (11.5-15.5) g/dL Hct 30.9 (30.0-51.3) % MCV 96.2 H (80-96) fL MCH 33.7 H (27.7-33.6) pg MCHC 35.0 (32.2-35.4) g/dL RDW 18.2 H (11.5-15.5) % Plt Count 133 (125-369) X10(3)uL MPV 8.8 (7.4-10.4) fL Add Manual Diff Yes Neutrophils % (Manual) 85 H (46-82) % Band Neutrophils % 2 (0-6) % Lymphocytes % (Manual) 10 L (13-37) % Monocytes % (Manual) 3 L (4-12) % Sodium 129 L (135-145) mmol/L Potassium 3.6 D (3.5-5.3) mmol/L Chloride 92 L (100-110) mmol/L Carbon Dioxide 28 (21-32) mmol/L BUN 13 (7-18) mg/dL Creatinine 1.1 H (0.55-1.02) mg/dL Est Cr Clr Drug Dosing 51.15 mL/min Estimated GFR (MDRD) 49 L (>60) BUN/Creatinine Ratio 11.8 (9-20) Glucose 137 H (80-116) mg/dL Calcium 9.0 (8.6-10.2) mg/dL Total Bilirubin 21.0 H* (0.1-1.3) mg/dL AST 194 H* D (5-25) IU/L ALT 52 H D (12-36) U/L Alkaline Phosphatase 398 H (56-112) IU/L NT-Pro-B Natriuret Pep (<=125) pg/mL Total Protein 8.1 H (6.0-8.0) g/dL Albumin 2.7 L (3.2-4.6) g/dL Globulin 5.4 g/dL Albumin/Globulin Ratio 0.5 Amylase 26 (25-115) U/L Lipase (73-393) U/L 01/06/20 01/06/20 Range/Units 17:05 17:05 WBC (4.5-12.0) X10-3/uL RBC (3.23-5.20) x10(6)uL Hgb (11.5-15.5) g/dL Hct (30.0-51.3) % MCV (80-96) fL MCH (27.7-33.6) pg MCHC (32.2-35.4) g/dL RDW (11.5-15.5) % Plt Count (125-369) X10(3)uL MPV (7.4-10.4) fL Add Manual Diff Neutrophils % (Manual) (46-82) % Band Neutrophils % (0-6) % Lymphocytes % (Manual) (13-37) % Monocytes % (Manual) (4-12) % Sodium (135-145) mmol/L Potassium (3.5-5.3) mmol/L Chloride (100-110) mmol/L Carbon Dioxide (21-32) mmol/L BUN (7-18) mg/dL Creatinine (0.55-1.02) mg/dL Est Cr Clr Drug Dosing mL/min Estimated GFR (MDRD) (>60) BUN/Creatinine Ratio (9-20) Glucose (80-116) mg/dL Calcium (8.6-10.2) mg/dL Total Bilirubin (0.1-1.3) mg/dL AST (5-25) IU/L ALT (12-36) U/L Alkaline Phosphatase (56-112) IU/L NT-Pro-B Natriuret Pep 116 (<=125) pg/mL Total Protein (6.0-8.0) g/dL Albumin (3.2-4.6) g/dL Globulin g/dL Albumin/Globulin Ratio Amylase (25-115) U/L Lipase 266 (73-393) U/L Meds: Medications Discontinued Medications Generic Name Dose Route Start Last Admin Trade Name Freq PRN Reason Stop Dose Admin Clonazepam 0.5 mg 01/06/20 20:38 Klonopin PO BID PRN Anxiety Folic Acid 1 mg 01/07/20 09:00 01/07/20 10:21 Folic Acid PO Not Given DAILY NISSA Sodium Chloride 1,000 mls @ 500 mls/hr 01/06/20 18:45 01/06/20 18:47 Normal Saline IV 500 mls/hr ASDIRECTED NISSA Administration Levofloxacin/Dextrose 500 mg/ 100 mls @ 100 mls/hr 01/06/20 20:45 01/06/20 21 :32 Premix IV 100 mls/hr Q24H NISSA Administration Sodium Chloride 1,000 mls @ 75 mls/hr 01/06/20 20:45 01/06/20 21:30 Normal Saline IV 75 mls/hr ASDIRECTED NISSA Administration Levofloxacin/Dextrose Confirm 01/06/20 21:03 01/06/20 22:08 Levaquin In D5w 500 Mg/100 Ml Administered 01/06/20 21:04 Not Given Dose 100 mls @ as directed IV .STK-MED ONE Levofloxacin/Dextrose Confirm 01/06/20 21:12 01/06/20 22:07 Levaquin In D5w 500 Mg/100 Ml Administered 01/06/20 21:13 Not Given Dose 100 mls @ as directed IV .STK-MED ONE Iopamidol 100 ml 01/06/20 17:39 01/06/20 17:56 Isovue-370 (76%) IV 01/06/20 17:40 99 ml ONETIME ONE Administration Lactulose 60 gm 01/06/20 16:31 01/06/20 16:49 Cephulac PO 01/06/20 16:32 60 gm ONETIME ONE Administration Lactulose Confirm 01/06/20 21:23 01/06/20 22:09 Chronulac Administered 01/06/20 21:24 Not Given Dose 20 gm .ROUTE .STK-MED ONE Lactulose 20 gm 01/06/20 22:00 01/06/20 22:09 Chronulac PO 20 gm TID NISSA Administration Lactulose 20 gm 01/07/20 09:00 01/07/20 10:21 Cephulac PO Not Given TID NISSA Magnesium Hydroxide 30 ml 01/06/20 20:28 Milk Of Magnesia PO BID PRN Constipation Non-Formulary Medication 20 mg 01/06/20 21:00 01/07/20 08:04 Omeprazole [Omeprazole] PO Not Given BEDTIME NISSA Non-Formulary Medication 40 mg 01/07/20 09:00 Paroxetine [Paxil] PO DAILY NISSA Pantoprazole Sodium 40 mg 01/06/20 22:00 01/06/20 22:19 Protonix PO 40 mg BEDTIME NISSA Administration Paroxetine HCl 40 mg 01/07/20 09:00 01/07/20 10:21 Paxil PO Not Given DAILY NISSA Spironolactone 50 mg 01/06/20 18:33 01/06/20 18:47 Aldactone PO 01/06/20 18:34 50 mg ONETIME ONE Administration Departure - Departure Time of Disposition: 20:30 Disposition: Admitted As Inpatient 67 Condition: Fair Clinical Impression: Jaundice, Cholelithiasis - Discharge Information *PRESCRIPTION DRUG MONITORING PROGRAM REVIEWED*: Not Applicable *COPY OF PRESCRIPTION DRUG MONITORING REPORT IN PATIENT KLAUDIA: Not Applicable Sepsis Event Note - Evaluation Sepsis Screening Result: No Definite Risk - Focused Exam Date Exam was Performed: 01/07/20 Time Exam was Performed: 19:01
--- NOTE | 2020-01-06 20:01 | CT ---
INDICATION: Jaundice. CT ABDOMEN AND PELVIS WITH CONTRAST: Spiral 2.5 mm axial sections were obtained through the abdomen and pelvis and then repeated after delay with sagittal and coronal reconstructions 01/06/2020 - no comparisons. Total exam DLP was 3845.69 mGy/cm. 99 cc Isovue-370 were utilized with 100 second delay at 2 cc/second. There is what appears to be some interstitial prominence raising question of lung edema. No gross consolidating pneumonia was seen. There are some fibrotic changes at the lung bases. The heart is enlarged. No pericardial effusion was seen. The liver is very low in density which could be on the basis of significant inflammation or possibly fatty liver. The bile ducts were not well visualized. Common bile duct was not well seen. Findings raise question of ascending cholangitis but should be correlated clinically. The gallbladder was not grossly enlarged but was slightly distended and did measure abnormally large at 10.1 cm. The gallbladder wall also appears thickened and slightly indistinct. Fat stranding is noted around the gallbladder and around the edge of the liver extending into the pericolic gutter on the right and across the abdomen to the left into the pericolic gutter slightly. Multiple gallstones are noted in the gallbladder of small size. The common bile duct was not definitely visualized. The adrenal glands appeared grossly normal. There is renal cortical scarring of mild degree, more prominently on the left than right. The spleen did not appear grossly enlarged, measuring maximum anterior- posterior of approximately 15.5 cm which is somewhat enlarged. The pancreas appears to be fairly normal in appearance although a very tiny nodular mass is difficult to entirely exclude at the tail measuring approximately 12.2 mm. MRI may be helpful for confirmation. The pancreas also showed some evidence of minimal fat stranding about it which could be related to the apparent cholecystitis. No definite pancreatitis is noted. The appendix is absent compatible with history of its removal. At the mid to distal ascending colon, there is an appearance suggesting thickening of the wall which could be of a neoplastic process but should be correlated clinically. This is noted on axial images 65 of 116 at 1154 hours through approximately 77 of 116 on axial views and on the coronal images 48 through 62 of 131 at 1754 hours. Colonoscopy may be warranted for further evaluation. Calcifications are noted in the splenic artery, the aorta, renal arteries at their origins, iliac and femoral arteries. No evidence of free air or bowel obstruction was seen. No definite herniation was identified. The uterus is absent compatible with history of its removal. Urinary bladder was unremarkable. There may be some thickening of the wall of the distal descending and sigmoid colon which could be on the basis of colitis but should be correlated clinically. In the posterior cul-de-sac area, there is some fluid present which could be related to the process at the gallbladder. No other free fluid collections, organomegaly or mass lesions were suggested in the abdomen or pelvis. Minimal diverticulosis is noted in the area of the splenic flexure, descending, and sigmoid colon proximally. The thickening of the wall of the colon, however , appears to be more generalized than a diverticulitis, more suggestive of colitis. IMPRESSION: 1. Cholelithiasis with probable cholecystitis and possible peritonitis. This should be correlated clinically. 2. There is question of a tiny mass measuring 12.2 mm at the tail of the pancreas on axial image 44 of 116. This finding may represent anatomic variation rather than a true mass. MRI may be helpful for confirmation. 3. ASD/ASHD. 4. Low density liver which may be on the basis of fatty liver and/or inflammatory process - difficult to exclude ascending cholangitis - correlate clinically. 5. Fluid possibly relating to inflammatory process extends into the pelvis along pericolic gutters especially on the right. 6. Suggestion of thickening of the wall of the ascending colon. This could be on the basis of a neoplastic process and should be correlated clinically. Colonoscopy may be warranted. Additionally, there is thickening of the wall of the colon in the transverse and distal descending and sigmoid areas which could be related to a process such as Crohn's disease or possibly ulcerative colitis, however, the rectum does not appear to be involved. Colonoscopy may be warranted. 7. Minimal diverticulosis coli. Report was called to Dr. Rossi initially as soon as the images became available for interpretation and a second call was made at approximately [address] [facility]
[2020-01-06] MEDS ORDERED: Magnesium Hydroxide 400 MG/5 ML Susp 30 ML Cup PO PRN (20:28)
[2020-01-06] MEDS ORDERED: ClonazePAM 0.5 MG Tab PO PRN (20:38)
[2020-01-06] MEDS ORDERED: Levofloxacin/Dextrose 5%-Water 500 MG in Premix Bag 1 BAG IV SCH (20:45)
[2020-01-06] MEDS ORDERED: Non-Formulary Medication 1 Each (Omeprazole [Omeprazole] 20 MG) PO SCH (21:00)
[2020-01-06] MEDS ORDERED: Lactulose Soln 10 GM/15 ML 30 ML UD Cup PO SCH (21:00)
[2020-01-06] MEDS ORDERED: Levofloxacin/Dextrose 5%-Water 100 ML IV ONE ×2 (21:03→21:12)
[2020-01-06] MEDS ORDERED: Lactulose Soln 10 GM/15 ML 15 ML UD Cup ONE (21:23)
[2020-01-06] MEDS ORDERED: Pantoprazole 40 MG Tab.CR PO SCH (22:00)
[2020-01-06] MEDS ORDERED: Lactulose Soln 10 GM/15 ML 15 ML UD Cup PO SCH (22:00)
--- NOTE | 2020-01-07 08:09 | PCM.HP.2 ---
H&P History of Present Illness - General Date of Service: 01/07/20 Admit Problem/Dx: Admission Diagnosis/Problem Admission Diagnosis/Problem Cholecystitis with cholangitis Source of Information: Patient History Limitations: Reports: No Limitations - History of Present Illness Initial Comments - Free Text/Narative: This is a 69-year-old female patient that was seen by the retail banker yesterday and the clinic and he knows she was very jaundiced. She had Dr. Mildred Ruiz come to see her any center the ER. She had a CT that showed gallstones. They could not see the common duct. Bilirubin was 21 but transaminases relatively normal. She says she's been DL some nausea, vomiting, intermittent abdominal cramping for a while little today she says she feels good but she has chills. She also has been having cellulitis in the lower legs. She says she was a physical therapy and a rapid and it feels much better. She feels cold today but no fevers. She denies nasal congestion, sore throat, cough. She is on lactulose and having lots of diarrhea currently. She denies abdominal pain diarrhea or constipation. Asked about alcohol. She says she drinks socially occasionally.. Old records state that her primary said congratulated her absence. She or her are not aware that she was yellow. She does not know how long this is been going on. Old records state bilirubin was 6 in September 2019. - Related Data Allergies/Adverse Reactions: Allergies Allergy/AdvReac Type Severity Reaction Status Date / Time No Known Allergies Allergy Verified 03/07/19 11:46 Home Medications: Home Meds ClonazePAM [KlonoPIN] 0.5 mg PO BID PRN 06/23/17 [History] Acetaminophen [Tylenol] 650 mg PO Q4H PRN 03/07/19 [History] Aspirin [Halfprin] 81 mg PO DAILY 03/07/19 [History] Folic Acid 1 mg PO DAILY 03/07/19 [History] Olopatadine [Pataday 0.2% Ophth Soln] 1 drop EYEBOTH DAILY 03/07/19 [History] Omeprazole 20 mg PO BEDTIME 03/07/19 [History] PARoxetine [Paxil] 40 mg PO DAILY 03/07/19 [History] Triamcinolone Acetonide [Triamcinolone Acetonide 0.1% Crm] 1 applic TOP BID PRN 03/07/19 [History] Past Medical History HEENT History: Reports: Impaired Vision Other HEENT History: glasses Cardiovascular History: Reports: Heart Failure, Hypertension Respiratory History: Reports: None Gastrointestinal History: Reports: None Genitourinary History: Reports: None [employer]OR History: Reports: Other OB/BYN History: Musculoskeletal History: Reports: Other (See Below) Other Musculoskeletal History: has lymphedema Psychiatric History: Reports: Anxiety, Depression Other Psychiatric History: takes Paroxetine and clonazepam. Endocrine/Metabolic History: Reports: Diabetes, Type II Hematologic History: Reports: Anticoagulation Therapy, Folic Acid Immunologic History: Reports: None Oncologic (Cancer) History: Reports: None Dermatologic History: Reports: Cellulitis Other Dermatologic History: cellulitis in 2014 - Infectious Disease History Infectious Disease History: Reports: Chicken Pox, Measles - Past Surgical History Head Surgeries/Procedures: Reports: None HEENT Surgical History: Reports: Cataract Surgery Cardiovascular Surgical History: Reports: None GI Surgical History: Reports: None Female Surgical History: Reports: Hysterectomy Endocrine Surgical History: Reports: None Neurological Surgical History: Reports: None Musculoskeletal Surgical History: Reports: Other (See Below) Other Musculoskeletal Surgeries/Procedures:: rotating cuff-right shoulder Oncologic Surgical History: Reports: None Social & Family History - Family History Family Medical History: Noncontributory - Tobacco Use Smoking Status *Q: Current Every Day Smoker Years of Tobacco use: 30 Packs/Tins Daily: 0.2 Used Tobacco, but Quit: No - Caffeine Use Caffeine Use: Reports: None - Alcohol Use Days Per Week of Alcohol Use: 3 Number of Drinks Per Day: 3 Total Drinks Per Week: 9 - Recreational Drug Use Recreational Drug Use: No H&P Review of Systems - Review of Systems: Review Of Systems: See Below General: Reports: Chills, Malaise, Weakness. Denies: Fatigue, Night Sweats, Diaphoresis, Decreased Appetite, Weight Gain HEENT: Reports: No Symptoms Pulmonary: Reports: No Symptoms Cardiovascular: Reports: No Symptoms Gastrointestinal: Reports: Abdominal Pain, Diarrhea, Nausea Genitourinary: Reports: No Symptoms Musculoskeletal: Reports: No Symptoms Skin: Reports: Jaundice Psychiatric: Reports: No Symptoms Neurological: Reports: No Symptoms Hematologic/Lymphatic: Reports: No Symptoms Immunologic: Reports: No Symptoms Exam - Exam Exam: See Below - Vital Signs Vital Signs: Last Vital Signs Temp 97.6 F 01/07/20 02:45 Pulse 102 H 01/07/20 02:45 Resp 20 01/07/20 02:45 BP 146/69 H 01/07/20 02:45 Pulse Ox 94 L 01/07/20 02:45 Weight: 295 lb - Exam General: Alert, Oriented, Cooperative HEENT: Hearing Intact, Mucosa Moist & [place], Posterior Pharynx Clear, Scleral Icterus Neck: Supple, Trachea Midline Lungs: Clear to Auscultation, Normal Respiratory Effort. No: Crackles, Rales, Rhonchi, Rub Cardiovascular: Regular Rate, Regular Rhythm. No: Systolic Murmur GI/Abdominal Exam: Normal Bowel Sounds, Soft, Non-Tender, No Organomegaly, No Distention, No Abnormal Bruit, No Mass Back Exam: Normal Inspection Extremities: No Pedal Edema. No: Normal Inspection, Non-Tender Skin: Other (Erythema circumferentially bilaterally just below the tibial tuberosity to the upper ankle. Not warm to touch.) Neurological: Normal Tone Neuro Extensive - Mental Status: Alert, Oriented x3, Normal Cognition Psychiatric: Alert, Normal Affect - Patient Data Lab Results Last 24 hrs: Laboratory Results - last 24 hr 01/06/20 01/06/20 01/06/20 Range/Units 17:05 17:05 17:05 WBC 11.4 (4.5-12.0) X10-3/uL RBC 3.21 L (3.23-5.20) x10(6)uL Hgb 10.8 L (11.5-15.5) g/dL Hct 30.9 (30.0-51.3) % MCV 96.2 H (80-96) fL MCH 33.7 H (27.7-33.6) pg MCHC 35.0 (32.2-35.4) g/dL RDW 18.2 H (11.5-15.5) % Plt Count 133 (125-369) X10(3)uL MPV 8.8 (7.4-10.4) fL Add Manual Diff Yes Neutrophils % (Manual) 85 H (46-82) % Band Neutrophils % 2 (0-6) % Lymphocytes % (Manual) 10 L (13-37) % Monocytes % (Manual) 3 L (4-12) % Sodium 129 L (135-145) mmol/L Potassium 3.6 D (3.5-5.3) mmol/L Chloride 92 L (100-110) mmol/L Carbon Dioxide 28 (21-32) mmol/L BUN 13 (7-18) mg/dL Creatinine 1.1 H (0.55-1.02) mg/dL Est Cr Clr Drug Dosing 51.15 mL/min Estimated GFR (MDRD) 49 L (>60) BUN/Creatinine Ratio 11.8 (9-20) Glucose 137 H (80-116) mg/dL Calcium 9.0 (8.6-10.2) mg/dL Total Bilirubin 21.0 H* (0.1-1.3) mg/dL AST 194 H* D (5-25) IU/L ALT 52 H D (12-36) U/L Alkaline Phosphatase 398 H (56-112) IU/L NT-Pro-B Natriuret Pep (<=125) pg/mL Total Protein 8.1 H (6.0-8.0) g/dL Albumin 2.7 L (3.2-4.6) g/dL Globulin 5.4 g/dL Albumin/Globulin Ratio 0.5 Amylase 26 (25-115) U/L Lipase (73-393) U/L 01/06/20 01/06/20 Range/Units 17:05 17:05 WBC (4.5-12.0) X10-3/uL RBC (3.23-5.20) x10(6)uL Hgb (11.5-15.5) g/dL Hct (30.0-51.3) % MCV (80-96) fL MCH (27.7-33.6) pg MCHC (32.2-35.4) g/dL RDW (11.5-15.5) % Plt Count (125-369) X10(3)uL MPV (7.4-10.4) fL Add Manual Diff Neutrophils % (Manual) (46-82) % Band Neutrophils % (0-6) % Lymphocytes % (Manual) (13-37) % Monocytes % (Manual) (4-12) % Sodium (135-145) mmol/L Potassium (3.5-5.3) mmol/L Chloride (100-110) mmol/L Carbon Dioxide (21-32) mmol/L BUN (7-18) mg/dL Creatinine (0.55-1.02) mg/dL Est Cr Clr Drug Dosing mL/min Estimated GFR (MDRD) (>60) BUN/Creatinine Ratio (9-20) Glucose (80-116) mg/dL Calcium (8.6-10.2) mg/dL Total Bilirubin (0.1-1.3) mg/dL AST (5-25) IU/L ALT (12-36) U/L Alkaline Phosphatase (56-112) IU/L NT-Pro-B Natriuret Pep 116 (<=125) pg/mL Total Protein (6.0-8.0) g/dL Albumin (3.2-4.6) g/dL Globulin g/dL Albumin/Globulin Ratio Amylase (25-115) U/L Lipase 266 (73-393) U/L Result Diagrams: 01/06/20 17:05 01/06/20 17:05 Sepsis Event Note - Evaluation Sepsis Screening Result: No Definite Risk - Focused Exam Vital Signs: Vital Signs Temp Pulse Resp BP BP Pulse Ox 01/07/20 02:45 97.6 F 102 H 20 146/69 H 94 L 01/07/20 01:26 97 01/07/20 00:28 96.7 F L 82 16 136/72 97 01/06/20 20:49 96.7 F L 78 16 132/76 97 01/06/20 20:30 97.6 F 92 16 134/78 01/06/20 20:28 97.6 F 76 20 134/76 97 Date Exam was Performed: 01/07/20 Time Exam was Performed: 08:03 - Problem List (1) Jaundice SNOMED Code(s): 70869969 ICD Code: R17 - UNSPECIFIED JAUNDICE Status: Acute Current Visit: Yes (2) Cholelithiasis SNOMED Code(s): 769874828 ICD Code: K80.20 - CALCULUS OF GALLBLADDER W/O CHOLECYSTITIS W/O OBSTRUCTION Status: Acute Current Visit: Yes (3) Cholestasis SNOMED Code(s): 42529788 ICD Code: K83.1 - OBSTRUCTION OF BILE DUCT Status: Acute Current Visit: Yes (4) Cellulitis SNOMED Code(s): 952529847 ICD Code: L03.90 - CELLULITIS, UNSPECIFIED Status: Acute Current Visit: Yes (5) History of alcohol abuse SNOMED Code(s): 119693944 ICD Code: F10.11 - ALCOHOL ABUSE, IN REMISSION Status: Acute Current Visit: Yes (6) Palliative care status SNOMED Code(s): 077337196 ICD Code: Z51.5 - ENCOUNTER FOR PALLIATIVE CARE Status: Acute Current Visit: Yes (7) Morbid obesity with BMI of 50.0-59.9, adult SNOMED Code(s): 975599404, 08776515610999 ICD Code: E66.01 - MORBID (SEVERE) OBESITY DUE TO EXCESS CALORIES; Z68.43 - BODY MASS INDEX (BMI) 50.0-59.9, ADULT Status: Acute Current Visit: No Problem List Initiated/Reviewed/Updated: Yes Orders Last 24hrs: Active Orders 24 hr Category Date Time Status Patient Status [ADT] Routine ADT 01/06/20 20:28 Active Ambulate [RC] PER UNIT ROUTINE Care 01/06/20 20:28 Active Antiembolic Devices [RC] .Routine Care 01/06/20 20:31 Active Height and Weight [RC] DAILY Care 01/06/20 20:28 Active Intake and Output [RC] ASDIRECTED Care 01/06/20 20:28 Active Pulse Oximetry [RC] PRN Care 01/06/20 20:28 Active Up With Assistance [RC] ASDIRECTED Care 01/06/20 20:28 Active VTE/DVT Education [RC] Click to Edit Care 01/06/20 20:31 Active Vital Signs [RC] Q4H Care 01/06/20 20:28 Active Full Liquid Diet [DIET] Diet 01/07/20 Breakfast Ordered AMMONIA, PLASMA Stat Lab 01/06/20 22:10 Received CBC WITH AUTO DIFF [HEME] AM Lab 01/08/20 05:11 Ordered COMPREHENSIVE METABOLIC PN,CMP [CHEM] AM Lab 01/08/20 05:11 Ordered HBSAG SCREEN Stat Lab 01/06/20 17:05 Received HCV ANTIBODY Stat Lab 01/06/20 17:05 Received ClonazePAM [KlonoPIN] Med 01/06/20 20:38 Active 0.5 mg PO BID PRN Folic Acid Med 01/07/20 09:00 Active 1 mg PO DAILY Lactulose [Cephulac] Med 01/07/20 09:00 Active 20 gm PO TID Levofloxacin/Dextrose 5%-Water [Levaquin in D5W 500 MG/ Med 01/06/20 20:45 Active 100 ML] 500 mg Premix Bag 1 bag IV Q24H Magnesium Hydroxide [Milk of Magnesia] Med 01/06/20 20:28 Active 30 ml PO BID PRN PARoxetine [Paxil] Med 01/07/20 09:00 Active 40 mg PO DAILY Pantoprazole [ProTONIX] Med 01/06/20 22:00 Active 40 mg PO BEDTIME Sodium Chloride 0.9% [Normal Saline] 1,000 ml Med 01/06/20 20:45 Active IV ASDIRECTED DVT/VTE Prophylaxis Reflex [OM.PC] Per Unit Routine Oth 01/06/20 20:28 Ordered Resuscitation Status Routine Resus Stat 01/06/20 20:28 Ordered Medication Orders Clonazepam (Klonopin) 0.5 mg PO BID PRN PRN Reason: Anxiety Folic Acid (Folic Acid) 1 mg PO DAILY [facility] Levofloxacin/Dextrose 500 mg/ (Premix) 100 mls @ 100 mls/hr IV Q24H [facility] Last Admin: 01/06/20 21:32 Dose: 100 mls/hr Sodium Chloride (Normal Saline) 1,000 mls @ 75 mls/hr IV ASDIRECTED [facility] Lactulose (Cephulac) 20 gm PO TID N[facility] Magnesium Hydroxide (Milk Of Magnesia) 30 ml PO BID PRN PRN Reason: Constipation Pantoprazole Sodium (Protonix) 40 mg PO BEDTIME [facility] Last Admin: 01/06/20 22:19 Dose: 40 mg Paroxetine HCl (Paxil) 40 mg PO DAILY [facility] Assessment/Plan Comment:: 1. Admit to the hospital. 2. Nothing by mouth until she's been evaluated by the surgeon. 3. Full code 4. Surgical consult which I done. 5. Medications with sips 6. Recheck liver functions and CBC 7. Wrap lower legs 8. Hold off on any anticoagulation until we get a PT/INR 9. Up with assist. 10. IV fluids maintenance dose. - Mortality Measure Prognosis:: Good
[2020-01-07] MEDS ORDERED: PARoxetine 20 MG Tab PO SCH (09:00)
[2020-01-07] MEDS ORDERED: PAROXETINE 40 MG PO SCH (09:00)
[2020-01-07] MEDS ORDERED: Lactulose Soln 10 GM/15 ML 30 ML UD Cup PO SCH (09:00)
[2020-01-07] MEDS ORDERED: Folic Acid 1 MG Tab PO SCH (09:00)
--- NOTE | 2020-01-07 09:21 | PCM.DCSUM1 ---
Discharge Summary - Hospital Course Free Text/Narrative:: Hospital course-patient was admitted overnight start [facility]. I made her nothing by mouth in the morning and did surgical consult. The surgeon felt she needed to be transferred to [place] for further workup and ERCP. I called up to [place] resolution agent and talk to Dr. Peck who received her for transfer. We'll continue to make her nothing by mouth and give her IV fluids and IV antibiotics and hold her by mouth medications. Labs were ordered but for this morning but have not been either drawn or reported out yet. Her legs are very erythematous and are currently wrapped. Brief History: This is a 69-year-old female patient that was seen by the electricity trading analyst yesterday and the clinic and he knows she was very jaundiced. She had Dr. Mildred Ruiz come to see her any center the ER. She had a CT that showed gallstones. They could not see the common duct. Bilirubin was 21 but transaminases relatively normal. She says she's been DL some nausea, vomiting, intermittent abdominal cramping for a while little today she says she feels good but she has chills. She also has been having cellulitis in the lower legs. She says she was a physical therapy and a rapid and it feels much better. She feels cold today but no fevers. She denies nasal congestion, sore throat, cough. She is on lactulose and having lots of diarrhea currently. She denies abdominal pain diarrhea or constipation. Asked about alcohol. She says she drinks socially occasionally.. Old records state that her primary said congratulated her absence. She or her are not aware that she was yellow. She does not know how long this is been going on. Old records state bilirubin was 6 in September 2019. Diagnosis: Stroke: No - Discharge Data Discharge Date: 01/07/20 Discharge Disposition: DC/Tfer to Acute Hospital 02 Condition: Fair - Referral to Home Health Primary Care Physician: CHARLIE Magallon - Discharge Diagnosis/Problem(s) (1) Jaundice SNOMED Code(s): 15090811 ICD Code: R17 - UNSPECIFIED JAUNDICE Status: Acute Current Visit: Yes (2) Cholelithiasis SNOMED Code(s): 405246076 ICD Code: K80.20 - CALCULUS OF GALLBLADDER W/O CHOLECYSTITIS W/O OBSTRUCTION Status: Acute Current Visit: Yes (3) Cholestasis SNOMED Code(s): 39809706 ICD Code: K83.1 - OBSTRUCTION OF BILE DUCT Status: Acute Current Visit: Yes (4) Cellulitis SNOMED Code(s): 252113407 ICD Code: L03.90 - CELLULITIS, UNSPECIFIED Status: Acute Current Visit: Yes (5) History of alcohol abuse SNOMED Code(s): 662652106 ICD Code: F10.11 - ALCOHOL ABUSE, IN REMISSION Status: Acute Current Visit: Yes (6) Palliative care status SNOMED Code(s): 721226852 ICD Code: Z51.5 - ENCOUNTER FOR PALLIATIVE CARE Status: Acute Current Visit: Yes (7) Morbid obesity with BMI of 50.0-59.9, adult SNOMED Code(s): 514201506, 52780631502560 ICD Code: E66.01 - MORBID (SEVERE) OBESITY DUE TO EXCESS CALORIES; Z68.43 - BODY MASS INDEX (BMI) 50.0-59.9, ADULT Status: Acute Current Visit: No (8) Hyponatremia SNOMED Code(s): 17092702 ICD Code: E87.1 - HYPO-OSMOLALITY AND HYPONATREMIA Status: Acute Current Visit: Yes - Patient Summary/Data Consults: Consultations 01/07/20 08:18 Consult to Physician [CONS] Routine Consulting Provider: Ac Au Call Completed to Consulting Physician: Yes - Patient Instructions Diet: NPO Activity: As Tolerated Driving: Do Not Drive Other/Special Instructions: Transfer to Dr. Peck receiving. Nothing by mouth, hold all by mouth medications. Continue all IV including fluids. - Discharge Plan Home Medications: Home Meds ClonazePAM [KlonoPIN] 0.5 mg PO BID PRN 06/23/17 [History] Acetaminophen [Tylenol] 650 mg PO Q4H PRN 03/07/19 [History] Aspirin [Halfprin] 81 mg PO DAILY 03/07/19 [History] Folic Acid 1 mg PO DAILY 03/07/19 [History] Olopatadine [Pataday 0.2% Ophth Soln] 1 drop EYEBOTH DAILY 03/07/19 [History] Omeprazole 20 mg PO BEDTIME 03/07/19 [History] PARoxetine [Paxil] 40 mg PO DAILY 03/07/19 [History] Triamcinolone Acetonide [Triamcinolone Acetonide 0.1% Crm] 1 applic TOP BID PRN 03/07/19 [History] Patient Handouts: Diabetes Mellitus and Foot Care, Cholelithiasis, Acute Pancreatitis, Vady-an-Rbgf, Fall Prevention in Hospitals, Adult, Venous Thromboembolism Prevention Forms: ED Department Discharge Referrals: Suzan Mei PA [Primary Care Provider] - - Discharge Summary/Plan Comment DC Time >30 min.: Yes (Reviewing old charts, discussing care with providers in [place], pt visit >30) - Patient Data Vitals - Most Recent: Last Vital Signs Temp 97.6 F 01/07/20 02:45 Pulse 102 H 01/07/20 02:45 Resp 20 01/07/20 02:45 BP 146/69 H 01/07/20 02:45 Pulse Ox 94 L 01/07/20 02:45 Weight - Most Recent: 295 lb I&O - Last 24 hours: Intake & Output 01/06/20 01/07/20 01/07/20 22:59 06:59 14:59 Intake Total 200 100 Balance 200 100 Lab Results - Last 24 hrs: Laboratory Results - last 24 hr 01/06/20 01/06/20 01/06/20 Range/Units 17:05 17:05 17:05 WBC 11.4 (4.5-12.0) X10-3/uL RBC 3.21 L (3.23-5.20) x10(6)uL Hgb 10.8 L (11.5-15.5) g/dL Hct 30.9 (30.0-51.3) % MCV 96.2 H (80-96) fL MCH 33.7 H (27.7-33.6) pg MCHC 35.0 (32.2-35.4) g/dL RDW 18.2 H (11.5-15.5) % Plt Count 133 (125-369) X10(3)uL MPV 8.8 (7.4-10.4) fL Add Manual Diff Yes Neutrophils % (Manual) 85 H (46-82) % Band Neutrophils % 2 (0-6) % Lymphocytes % (Manual) 10 L (13-37) % Monocytes % (Manual) 3 L (4-12) % Sodium 129 L (135-145) mmol/L Potassium 3.6 D (3.5-5.3) mmol/L Chloride 92 L (100-110) mmol/L Carbon Dioxide 28 (21-32) mmol/L BUN 13 (7-18) mg/dL Creatinine 1.1 H (0.55-1.02) mg/dL Est Cr Clr Drug Dosing 51.15 mL/min Estimated GFR (MDRD) 49 L (>60) BUN/Creatinine Ratio 11.8 (9-20) Glucose 137 H (80-116) mg/dL Calcium 9.0 (8.6-10.2) mg/dL Total Bilirubin 21.0 H* (0.1-1.3) mg/dL AST 194 H* D (5-25) IU/L ALT 52 H D (12-36) U/L Alkaline Phosphatase 398 H (56-112) IU/L NT-Pro-B Natriuret Pep (<=125) pg/mL Total Protein 8.1 H (6.0-8.0) g/dL Albumin 2.7 L (3.2-4.6) g/dL Globulin 5.4 g/dL Albumin/Globulin Ratio 0.5 Amylase 26 (25-115) U/L Lipase (73-393) U/L 01/06/20 01/06/20 Range/Units 17:05 17:05 WBC (4.5-12.0) X10-3/uL RBC (3.23-5.20) x10(6)uL Hgb (11.5-15.5) g/dL Hct (30.0-51.3) % MCV (80-96) fL MCH (27.7-33.6) pg MCHC (32.2-35.4) g/dL RDW (11.5-15.5) % Plt Count (125-369) X10(3)uL MPV (7.4-10.4) fL Add Manual Diff Neutrophils % (Manual) (46-82) % Band Neutrophils % (0-6) % Lymphocytes % (Manual) (13-37) % Monocytes % (Manual) (4-12) % Sodium (135-145) mmol/L Potassium (3.5-5.3) mmol/L Chloride (100-110) mmol/L Carbon Dioxide (21-32) mmol/L BUN (7-18) mg/dL Creatinine (0.55-1.02) mg/dL Est Cr Clr Drug Dosing mL/min Estimated GFR (MDRD) (>60) BUN/Creatinine Ratio (9-20) Glucose (80-116) mg/dL Calcium (8.6-10.2) mg/dL Total Bilirubin (0.1-1.3) mg/dL AST (5-25) IU/L ALT (12-36) U/L Alkaline Phosphatase (56-112) IU/L NT-Pro-B Natriuret Pep 116 (<=125) pg/mL Total Protein (6.0-8.0) g/dL Albumin (3.2-4.6) g/dL Globulin g/dL Albumin/Globulin Ratio Amylase (25-115) U/L Lipase 266 (73-393) U/L Med Orders - Current: Current Medications Clonazepam (Klonopin) 0.5 mg PO BID PRN PRN Reason: Anxiety Folic Acid (Folic Acid) 1 mg PO DAILY [facility] Levofloxacin/Dextrose 500 mg/ (Premix) 100 mls @ 100 mls/hr IV Q24H [facility] Last Admin: 01/06/20 21:32 Dose: 100 mls/hr Sodium Chloride (Normal Saline) 1,000 mls @ 75 mls/hr IV ASDIRECTED [facility] Last Admin: 01/06/20 21:30 Dose: 75 mls/hr Lactulose (Cephulac) 20 gm PO TID [facility] Magnesium Hydroxide (Milk Of Magnesia) 30 ml PO BID PRN PRN Reason: Constipation Pantoprazole Sodium (Protonix) 40 mg PO BEDTIME [facility] Last Admin: 01/06/20 22:19 Dose: 40 mg Paroxetine HCl (Paxil) 40 mg PO DAILY [facility] Discontinued Medications Sodium Chloride (Normal Saline) 1,000 mls @ 500 mls/hr IV ASDIRECTED [facility] Last Admin: 01/06/20 18:47 Dose: 500 mls/hr Levofloxacin/Dextrose (Levaquin In D5w 500 Mg/100 Ml) Confirm Administered Dose 100 mls @ as directed IV .STK-MED ONE Stop: 01/06/20 21:04 Last Admin: 01/06/20 22:08 Dose: Not Given Levofloxacin/Dextrose (Levaquin In D5w 500 Mg/100 Ml) Confirm Administered Dose 100 mls @ as directed IV .STK-MED ONE Stop: 01/06/20 21:13 Last Admin: 01/06/20 22:07 Dose: Not Given Iopamidol (Isovue-370 (76%)) 100 ml IV ONETIME ONE Stop: 01/06/20 17:40 Last Admin: 01/06/20 17:56 Dose: 99 ml Lactulose (Cephulac) 60 gm PO ONETIME ONE Stop: 01/06/20 16:32 Last Admin: 01/06/20 16:49 Dose: 60 gm Lactulose (Chronulac) Confirm Administered Dose 20 gm .ROUTE .STK-MED ONE Stop: 01/06/20 21:24 Last Admin: 01/06/20 22:09 Dose: Not Given Lactulose (Chronulac) 20 gm PO TID [facility] Last Admin: 01/06/20 22:09 Dose: 20 gm Non-Formulary Medication (Omeprazole [Omeprazole]) 20 mg PO BEDTIME [facility] Last Admin: 01/07/20 08:04 Dose: Not Given Non-Formulary Medication (Paroxetine [Paxil]) 40 mg PO DAILY [facility] Spironolactone (Aldactone) 50 mg PO ONETIME ONE Stop: 01/06/20 18:34 Last Admin: 01/06/20 18:47 Dose: 50 mg
[2020-01-07 12:07] VITALS: BP 111/55; PULSE 100
[2020-01-08 09:09] LABS: HBSAG SCREEN Negative (Negative)
== END 2020-01-07 10:10 | DRG 445 ==
LOC: FB.ED 15:42 → FB.MS 20:12 → FB.ED 20:12 → UNDOADMIN 20:46 → FB.MS 20:46
PROVIDERS: ADMIT Family Medicine; ATTEND Family Medicine
DX: K80.20 Calculus of gallbladder without cholecystitis without obstruction (principal); R17 Unspecified jaundice; K80.51 Calculus of bile duct without cholangitis or cholecystitis with obstruction; Z68.43 Body mass index [BMI] 50.0-59.9, adult; L03.115 Cellulitis of right lower limb; L03.116 Cellulitis of left lower limb; E87.1 Hypo-osmolality and hyponatremia; H54.7 Unspecified visual loss; I11.0 Hypertensive heart disease with heart failure; I50.9 Heart failure, unspecified; F17.200 Nicotine dependence, unspecified, uncomplicated; F10.11 Alcohol abuse, in remission; F41.9 Anxiety disorder, unspecified; F17.210 Nicotine dependence, cigarettes, uncomplicated; Z51.5 Encounter for palliative care; E66.01 Morbid (severe) obesity due to excess calories; F32.9 Major depressive disorder, single episode, unspecified; E11.9 Type 2 diabetes mellitus without complications; Z79.01 Long term (current) use of anticoagulants; Z90.710 Acquired absence of both cervix and uterus; Z79.82 Long term (current) use of aspirin; Z79.899 Other long term (current) drug therapy; Z98.49 Cataract extraction status, unspecified eye
CPT/HCPCS: 36415; 74177; 80053; 82150; 83690; 83880; 85025; 86803; 87340; 96360; 99284; 99285; A9270 ×2; J7030; Q9967; 82140; J1956